=== PATIENT | female | born 1975 | race American Indian/Alaskan Native ===

== ENCOUNTER 2018-10-03 08:28 | Outpatient (CLI) | payer MEDICARE ==
--- NOTE | 2018-10-03 09:33 | XRay Report ---
CHEST 2 VIEWS INDICATION: N18.6 END STAGE RENAL DISEASE. COMPARISON: None FINDINGS: Support devices: None. Heart: Within normal limits. Lungs/pleura: No acute air space or interstitial disease. No pneumothorax. Additional findings: None. IMPRESSION: Normal chest x-ray. Signer Name: Juan J Haq Jr, MD Signed: 10/03/2018 9:28 AM Workstation Name: [id number]
== END 2018-10-03 08:29 | disposition home or self-care (01) ==
LOC: XRAY 08:28
PROVIDERS: ATTEND Internal Medicine Nephrology
DX: N18.6 End stage renal disease (principal)
CPT/HCPCS: 71046